=== PATIENT | male | born 1950 | race Caucasian/White ===

== ENCOUNTER 2020-10-22 03:01 | Emergency (ER) | payer MEDICARE ==
--- NOTE | 2020-10-22 04:51 | EDM.PDOC ---
ED HPI GENERAL MEDICAL PROBLEM - General Chief Complaint: Back Pain or Injury Stated Complaint: BACK PAIN Time Seen by Provider: 10/22/20 04:36 Source of Information: Reports: Patient History Limitations: Reports: No Limitations - History of Present Illness INITIAL COMMENTS - FREE TEXT/NARRATIVE: Mr. Jain is a very pleasant 70-year-old gentleman who now presents the ED stating that he was woken up around 00:15 this morning with right flank pain. He is unable to describe the character of the pain. He states that the pain did not radiate anywhere. He states that it came and went, and that at present it is gone. When it was present, he did not identify any modifiers. He had associated nausea, which has also resolved. No urinary symptoms. The patient did not take any [id number] or home remedies prior to coming to the ED. The patient states that his symptoms are very similar to when he had a kidney stone about 20 years ago. Here in the ED tonight, the patient's initial BP is found to be mildly elevated at 140/94, otherwise, he is hemodynamically stable, afebrile, saturating 90% on room air. He states that he is completely symptom-free. He appears to be comfortable, in no acute distress. Prior to this morning, the patient denies having a recent fever, chills, sore throat, ear pain, nasal or sinus congestion, cough, dyspnea, chest pain, palpit ations, nausea, vomiting, constipation, diarrhea, abdominal pain, urinary symptoms, recent weight gain or weight loss, recent bloody bowel movements or black bowel movements, recent joint aches, headaches, or rashes. The patient is visiting from [place]. Right Lower Back Pain Score (Numeric/FACES): 4 - Related Data Allergies Allergy/AdvReac Type Severity Reaction Status Date / Time No Known Allergies Allergy Verified 10/22/20 03:11 Home Meds: Home Meds Aspirin 81 mg PO DAILY 10/22/20 [History] Sildenafil Citrate [Viagra] 100 mg PO ASDIRECTED 10/22/20 [History] Testosterone 5 gm TD ASDIRECTED 10/22/20 [History] atorvaSTATin Calcium [Atorvastatin Calcium] 40 mg PO DAILY 10/22/20 [History] Past Medical History HEENT History: Reports: Impaired Vision (wears glasses) Cardiovascular History: Reports: High Cholesterol, Other (See Below) (Patent foramen ovale, s/p PFO occluder) Genitourinary History: Reports: BPH, Renal Calculus Neurological History: 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) - Past Surgical History HEENT Surgical History: Reports: Adenoidectomy, Oral Surgery (dental extractions), Tonsillectomy Cardiovascular Surgical History: Reports: Vascular Surgery (PFO occluder) GI Surgical History: Reports: Hernia, Inguinal (bilateral, x 2 each) Social & Family History - Tobacco Use Tobacco Use Status *Q: Never Tobacco User - Alcohol Use Alcohol Use History: Yes Alcohol Use Frequency: Rarely - Recreational Drug Use Recreational Drug Use: No - Living Situation & Occupation Living situation: Reports: , with Spouse Occupation: Retired ED ROS GENERAL - Review of Systems Review Of Systems: Comprehensive ROS is negative, except as noted in HPI. ED EXAM, RENAL/ - Physical Exam Exam: See Below Exam Limited By: No Limitations General Appearance: Alert, WD/WN, No Apparent Distress Eye Exam: Bilateral Eye: EOMI, Normal Inspection Ears: Normal External Exam, Hearing Grossly Normal Nose: Normal Inspection Throat/Mouth: Normal Inspection, Normal Lips, Normal Voice, No Airway Compromise Head: Atraumatic, Normocephalic Neck: Normal Inspection, Full Range of Motion Respiratory/Chest: No Respiratory Distress, Lungs Clear, Normal Breath Sounds, No Accessory Muscle Use Cardiovascular: Normal Peripheral Pulses, Regular Rate, Rhythm, No Edema, No Gallop, No JVD, No Murmur, No Rub GI/Abdominal: Normal Bowel Sounds, Soft, Non-Tender, No Organomegaly, No Distention, No Abnormal Bruit, No Mass Back Exam: Normal Inspection, Full Range of Motion. No: CVA Tenderness (L), CVA Tenderness (R) Extremities: Normal Inspection, Normal Range of Motion, No Pedal Edema, Normal Capillary Refill Neurological: Alert, Oriented, Normal Cognition, No Motor/Sensory Deficits Psychiatric: Normal Affect Skin Exam: Warm, Dry, Intact, Normal Color, No Rash Course - Vital Signs Last Recorded V/S: Last Vital Signs Temp 36.0 C L 10/22/20 03:19 Pulse 60 10/22/20 03:19 Resp 16 10/22/20 03:19 BP 140/94 H 10/22/20 03:19 Pulse Ox 98 10/22/20 03:19 - Orders/Labs/Meds Orders: Active Orders 24 hr Category Date Time Status Strain Urine [RC] ASDIRECTED Care 10/22/20 05:12 Active Abdomen Pelvis wo Cont [CT] Stat Exams 10/22/20 03:33 Taken Labs: Laboratory Tests 10/22/20 Range/Units 03:29 Urine Color Yellow (Yellow) Urine Appearance Slt cloudy H (Clear) Urine pH 6.0 (5.0-8.0) Ur Specific [place] 1.025 (1.005-1.030) Urine Protein 1+ H (Negative) Urine Glucose (UA) Negative (Negative) Urine Ketones Negative (Negative) Urine Occult Blood 3+ H (Negative) Urine Nitrite Negative (Negative) Urine Bilirubin Negative (Negative) Urine Urobilinogen 0.2 (0.2-1.0) Ur Leukocyte Esterase 1+ H (Negative) Urine RBC 40-50 H (0-5) /hpf Urine WBC 0-5 (0-5) /hpf Ur Squamous Epith Cells 0-5 (0-5) /hpf Calcium Oxalate Crystal Few H (NONE) Urine Bacteria Few (FEW) /hpf Urine Mucus Few (FEW) /hpf - Re-Assessments/Exams Free Text/Narrative Re-Assessment/Exam: 10/22/20 04:48 As above, the patient was woken from sleep around 00:15 this morning with right flank pain that did not radiate. The pain came and went, but when present, he did not identify any modifiers. At present, the pain is gone. He had associated nausea, but no vomiting. He states that his symptoms were very similar to a kidney stone 20 years ago. At present, his examination is completely normal. A urinalysis and CT of the abdomen and pelvis without contrast were ordered at triage. The urinalysis is remarkable for slightly cloudy appearance, 3+ occult blood with 40-50 RBCs, 1+ leukocyte esterase with 0-5 WBCs, nitrate negative with few bacteria, 0-5 squamous epithelial cells, and few calcium oxalate crystals. Results of his CT of the abdomen and pelvis are still pending. 10/22/20 05:09 CT of the abdomen and pelvis without contrast is read by [facility]lyn as: 1. Mild-moderate right hydroureteronephrosis likely related to recently passed calculus measuring 4.0 mm located within the urinary bladder. There is an additional 3-4 mm calcific opacity in the dependent distal right ureter, either a tiny calculus or hyperattenuating debris. 2. Linear subsegmental atelectasis/scar at both lung bases. 3. Nonobstructing left nephrolithiasis. 4. Bilateral renal cortical nodules either cyst or solid. These may be best initially further characterized by ultrasound. 5. Prostate gland enlargement with nodular mass-effect upon the bladder base. 10/22/20 05:17 Test results discussed with the patient. As above, it appears that the patient already passed the stone, and that it is in his bladder. Since the CT scan, the patient has already urinated, therefore it is possible that the stone is gone altogether, however, he will be given a urine strainer prior to discharge. If you capture the stone, I would like him to take it to his PCP back in [place], for analysis. If he redevelops any discomfort, he can take OTC ibuprofen, however, he has been pain-free during his entire ED visit, and it is unlikely that his pain will return. I advised him to stay adequately hydrated. Departure - Departure Time of Disposition: 05:18 Disposition: Home, Self-Care 01 Condition: Good Clinical Impression: Ureterolithiasis - Discharge Information *PRESCRIPTION DRUG MONITORING PROGRAM REVIEWED*: Not Applicable *COPY OF PRESCRIPTION DRUG MONITORING REPORT IN PATIENT [facility]ENRY: Not Applicable Referrals: PCP,Not In Area [Primary Care Provider] - Forms: ED Department Discharge Additional Instructions: In the emergency room after being woken with right flank pain and some nausea. Work-up in the ER included a urinalysis and a CT of your abdomen and pelvis. The urinalysis demonstrated blood in your urine, which is consistent with a kidney stone, but no suggestion of urinary tract infection. The CT scan found a 4 mm stone in your bladder. This means that you have already passed it out of your right ureter. If you have not done so already, at some point you will urinate it out through your urethra. We recommend that you stay adequately hydrated and strain all your urine for the next few days, to see if you can capture the stone. If you capture it, take it to your doctor in [place] for analysis. It is unlikely that you will redevelop pain, however, if you do experience any residual pain, you may take [id number] ibuprofen as needed for discomfort. If any other problems, please do not hesitate to return to the ER. Sepsis Event Note (ED) - Evaluation Sepsis Screening Result: No Definite Risk - Focused Exam Vital Signs: Vital Signs Temp Pulse Resp BP Pulse Ox 10/22/20 03:19 36.0 C L 60 16 140/94 H 98 - My Orders Last 24 Hours: My Active Orders 10/22/20 03:33 Abdomen Pelvis wo Cont [CT] Stat 10/22/20 05:12 Strain Urine [RC] ASDIRECTED - Assessment/Plan Last 24 Hours: My Active Orders 10/22/20 03:33 Abdomen Pelvis wo Cont [CT] Stat 10/22/20 05:12 Strain Urine [RC] ASDIRECTED
--- NOTE | 2020-10-22 08:18 | CT ---
CT abdomen and pelvis Technique: Multiple axial sections were obtained from above the dome of the diaphragm inferiorly through the pubic symphysis. Intravenous contrast was not utilized. Study has been performed as a ureteral stone protocol. Reconstructed coronal and sagittal images were obtained. Comparison: No prior CT abdomen or pelvis study is available. Findings: Right renal pelvis and right ureter are slightly dilated. There is a minimal area of increased density within the distal right ureter measuring less than 2 mm. This density is due to a very minimal nonobstructing stone or echogenic debris. There is a small calcification being seen within the bladder measuring about 3.8 mm. This represents either a very distal UVJ calculus or is within the bladder representing recently passed calculus. There is an additional small calcification compatible with a small stone within the bladder measuring 2 mm. Multiple nonobstructing calculi are seen within the left kidney. Both kidneys show what appears to be cysts. Largest cyst measures 5.0 cm. Visualized lung bases shows minimal scarring. Noncontrast appearance of the liver shows no focal abnormality. Gallbladder contains a small calcified gallstone. Spleen size is normal. Adrenal glands show no nodule. Pancreas shows no discrete abnormality. Abdominal aorta shows atherosclerotic calcification. No aneurysm is seen. No retroperitoneal adenopathy or mesenteric abnormalities are seen. No pelvic mass or adenopathy is noted. Prostate gland is slightly enlarged and shows calcifications. Surgical clips are noted anteriorly within the inguinal regions. Bone window settings were reviewed. Scattered degenerative change and scoliosis is noted within the spine. Degenerative change is noted within the sacroiliac joints as well as joint space narrowing within both hips, worse on the right side. Impression: 1. Right ureter is mildly dilated as as well as mildly prominent right renal pelvis. Minimal calcification within the distal right ureter measuring about 2 mm. This represents a very small nonobstructing calculus or calcified debris. There is an additional calcification being seen within the distal right UVJ or within the bladder representing recently passed stone which measures 3.8 mm. 2. Cysts within both kidneys. Nonobstructing calculi within the left kidney. 3. Other findings as noted above which are felt to be incidental. Diagnostic code #3 I agree with preliminary report from [facility], finalized on 10/22/20, 6:06 AM CDT, code 1
== END 2020-10-22 05:35 | disposition home or self-care (01) ==
LOC: JD.ED 03:01
DX: N13.2 Hydronephrosis with renal and ureteral calculous obstruction (principal); E78.00 Pure hypercholesterolemia, unspecified; Z86.73 Personal history of transient ischemic attack (TIA), and cerebral infarction without residual deficits; Z79.899 Other long term (current) drug therapy; Z79.82 Long term (current) use of aspirin
CPT/HCPCS: 74176; 74176-26; 81001; 99283; 99284-25